=== PATIENT | male | born 1990 | race Caucasian/White ===

== ENCOUNTER → 2016-06-06 | Outpatient (CLI) | payer OTHER ==
--- NOTE | 2016-06-07 08:41 | XR ---
EXAMINATION TYPE: XR hand complete RT DATE OF EXAM ORDERED: 06/06/2016 4:35 PM HISTORY: [id number] Crushed finger. COMPARISON: None. FINDINGS: No fracture, dislocation or other acute osseous lesion is seen. IMPRESSION: NORMAL RIGHT HAND.
== END | disposition home or self-care (01) ==
LOC: RADXRMAIN 16:17
PROVIDERS: ATTEND Emergency Medicine
DX: S67.198A Crushing injury of other finger, initial encounter (principal)